=== PATIENT | female | born 1985 | race Caucasian/White ===

== ENCOUNTER 2020-10-27 23:53 | Emergency (ER) | payer OTHER ==
[~2020-10-27] VITALS: Ht 170.2 cm; Wt 86.2 kg
[2020-10-27 23:58] VITALS: BP 127/92
[2020-10-28] MEDS ORDERED: DIAZEPAM 5 MG5 M1 PO (00:20)
[2020-10-28] MEDS ORDERED: APAP W/CODEINE1 TA2 PO (00:20)
[2020-10-28] MEDS ORDERED: PREDNISONE 20 M20 MG PO (00:20)
== END 2020-10-28 00:33 | disposition home or self-care (01) ==
LOC: ER 23:53
DX: M54.42 Lumbago with sciatica, left side (principal); M54.41 Lumbago with sciatica, right side; I10 Essential (primary) hypertension; Z88.1 Allergy status to other antibiotic agents